=== PATIENT | female | born 1950 | race Caucasian/White ===

== ENCOUNTER 2018-04-23 10:22 | Day surgery (SDC) | payer MEDICARE, OTHER, SELFPAY ==
--- NOTE | 2018-04-23 08:33 | PM.PREOP ---
Pre-operative Note Interval Note Pre-op Check: Yes History & Physical Reviewed by Physician Changes: No
--- NOTE | 2018-04-23 08:34 | PM.OP.1 ---
Procedure & Clinicians Procedure: Date of service: April 23, 2018 Preoperative diagnoses: 1. Nuclear sclerotic and cortical cataract. 2. Asthma 3. Astigmatism which she likes to correct with a toric intraocular lens implant. 4. Morbid obesity. Postoperative diagnoses: 1. Cataract Removed with phacoemulsification and placement of a toric intraocular lens. Procedure: Phacoemulsification with Toric posterior chamber intraocular lens implant Surgeon: Judi Kuhn MD Complications:None Specimen: None Implant:[id number]+19.0 [place] Blood loss: None Anesthesia: Retrobulbar with monitored standby Anesthesiologist: Milo Mejia M.D. Description of procedure: Patient is a 67 year old female with decreased vision due to cataract which is affecting activities of daily living. She wants surgery to improve vision. She was taken to the operating room and given IV sedation. Proparacaine drops were placed in indelible ink harper were placed at the 90 and 180 degree meridian. A retrobulbar block consisting of 6 cc of 2% xylocaine without epinephrine mixed half and half with 0.5% Marcaine with 1 cc of hyaluronidase added is placed between the medial and lateral 1/3 of the inferior orbital rim. Lid akinesia is obtain with 1% xylocaine with epinephrine infiltrated along the lid margin. The eye is manually massaged for 30 sec, prepped using Betadine solution, and draped in the usual sterile fashion. Temporal approach was made, a 1 mm side-port incision was made at the 12 oclock meridian. Phenylephrine 1.5% mixed with 1% xylocaine 0.2 cc was placed into the anterior chamber. Viscoat followed by Verenice was then placed. A 2.6 mm clear incision with a 2.6 mm blade was placed at the 3 oclock meridian. A 360 degree capsulorrhexis style capsulotomy was then performed with a cystitome needle on a Healon. Hydrodelineation and hydrodissection were performed. The phacoemulsification unit is introduced, and sculpting notice used to groove the central lens. It is then removed in chopping mode. Epi nucleus is removed with epinuclear mode and irrigation aspiration was used to remove the peripheral cortex. The posterior capsule is polished. The intraocular lens is selected, inspected, power confirmed, and placed in the posterior chamber. at the 84 degree meridian. The pupil was not constricted. The wound was stromally hydrated and tested for leaks, there was none and was left sutureless. Vigamox 0.1 cc was placed into the anterior chamber. Kenalog 0.2 cc was placed in the superior subconjunctival space. A drop of antibiotic and was placed and the eye was patched and shielded. The patient was stable and returned to the recovery room in excellent condition. Dictated by: Judi Kuhn MD Copy to: [facility] Same procedure as scheduled: Yes
[2018-04-23] MEDS: PROPARACAINE 0.5% OPHTH SOL 2 DROPS EYE-OP ×2 (10:49→12:00)
[2018-04-23 10:50] VITALS: BP 165/91; PULSE 69; RESP 16; TEMP 36.4; O2SAT 99; BMI 41.1
[2018-04-23] MEDS: CATARACT EYE COMPOUND (10 DROPS/SYRINGE) 3 DROPS EYE-OP (10:50)
[2018-04-23 11:09] VITALS: BP 165/91; PULSE 69; RESP 16; TEMP 36.4; O2SAT 99
[2018-04-23 11:11] VITALS: BMI 41.1
[2018-04-23 11:17] VITALS: BMI 41.1
[2018-04-23] MEDS: HYALURONATE SODIUM 10 MG/ML SYRINGE INJ (12:37)
[2018-04-23] MEDS: BALANCED SALT IRRIG SOLN NO.2 15 ML IRRIG.SOLN IRR (12:37)
[2018-04-23] MEDS: CHONDROIDTIN/SOD HYALURONATE 1.05 ML SYRINGE INTRAOCULA (12:37)
[2018-04-23] MEDS: LIDOCAINE 1% W/EPI INJ 20 ML INJ (12:37)
[2018-04-23] MEDS: OFLOXACIN 0.3% OPHTH 5 ML 2 DROPS EYE-LEFT (12:38)
[2018-04-23] MEDS: MOXIFLOXACIN OPHTH DROPS 3 ML BOTTLE 2 DROPS INJ (12:38)
[2018-04-23] MEDS: PHENYLEPHRINE/LIDOCAINE VIAL (OR) 0.2 ML EYE-OP (12:39)
[2018-04-23] MEDS: TRIAMCINOLONE 50 MG/5 ML VIAL INJ (12:39)
[2018-04-23] MEDS: LIDOCAINE 2% 4 ML, BUPIVACAINE 0.5% (PF) 4 ML, HYALURONIDASE 150 UNIT INJ (12:40)
[2018-04-23] MEDS: BALANCED SALT IRRIG SOLN NO.2 500 ML, EPINEPHrine 1 MG IRR (12:40)
[2018-04-23] MEDS: NEOMYCIN/POLY/DEX OPHTH OINT 1 APPLIC EYE-LEFT (12:42)
[2018-04-23 13:14] VITALS: BP 157/72; PULSE 61; RESP 16; TEMP 36.4; O2SAT 100
--- NOTE | 2018-04-23 13:23 | SUR.PHASEII ---
pt dressed when ready, steady when up. friend called, waiting with volunteer, pt left in stable condition.
== END 2018-04-23 13:26 | disposition home or self-care (01) ==
LOC: OR 10:27
PROVIDERS: PCP Physician Assistant; Visit Provider Ophthalmology
DX: H25.12 Age-related nuclear cataract, left eye (principal); J45.909 Unspecified asthma, uncomplicated; H52.202 Unspecified astigmatism, left eye; E66.01 Morbid (severe) obesity due to excess calories
CPT/HCPCS: J0171; J2704; J3301; J3470; V2787

== ENCOUNTER 2018-05-07 08:25 | Day surgery (SDC) | payer MEDICARE, OTHER, SELFPAY ==
--- NOTE | 2018-05-06 17:04 | PM.PREOP ---
Pre-operative Note Interval Note Pre-op Check: Yes History & Physical Reviewed by Physician Changes: No
--- NOTE | 2018-05-06 17:18 | P.OP_ITS ---
Operative Date/Time/Diagnoses Date of procedure: 05/07/18 Time of procedure: 10:00 Procedure & Clinicians Procedure: Date of service: May 07, 2018 Preoperative diagnoses:1. Right nuclear sclerotic cataract. 2. Astigmatism which she elects to correct with a toric intraocular lens implant. Postoperative diagnoses:1. Cataract Procedure : Phacoemulsification with posterior chamber toric intraocular lens implantSurgeon: Judi Kuhn, MDComplications: None Specimen: NoneImplant: [id number] +19.5, axis 111Blood loss: None Anesthesia: Retrobulbar with monitored standbyAnesthesiologist: Yousif Seals M.D.Description of procedure: Patient is a 68 year old female with decreased vision due to cataract which is affecting activities of daily living. She wants surgery to improve vision.She was taken to the operating room. Topical proparacaine drops were placed in indelible ink harper were placed at the cardinal meridians. She was given IV sedation. A retrobulbar block insert consisting of 6 cc of 2% xylocaine without epinephrine mixed half and half with 0.5 Marcaine with 1 cc of hyaluronidase added is placed between the medial and lateral 1/3 of the inferior orbital rim. Lid akinesia is obtain with 1% xylocaine with epinephrine infiltrated along the lid margin. The eye is manually massaged for 30 sec, prepped using Betadine solution, and draped in the usual sterile fashion.Temporal approach was made, a 1 mm side-port incision was made at the 7: 30 position. Phenylephrine 1.5% mixed with 1% xylocaine 0.2 cc was placed into the anterior chamber. Viscoat followed by Verenice was then placed. A 2.6 mm clear incision with a 2.6 mm blade was placed at the 170 degree meridian. A 360 degree capsulorrhexis style capsulotomy was then performed with a cystitome needle on a Healon. Hydrodelineation and hydrodissection were performed. The phacoemulsification unit is introduced, and sculpting notice used to groove the central lens. It is then removed in chopping mode. Epi nucleus is removed with epinuclear mode and irrigation aspiration was used to remove the peripheral cortex. The posterior capsule is polished. The intraocular lens is selected, inspected, power confirmed, and placed in the posterior chamber at the 111 degree meridian.. The pupil was not constricted. The wound was stromally hydrated and tested for leaks, there was none and it was left sutureless. Vigamox 0.1 cc was placed into the anterior chamber. Kenalog 0.2 cc was placed in the superior subconjunctival space. A drop of antibiotic and was placed and the eye was patched and shielded. The patient was stable and returned to the recovery room in excellent condition.Dictated by: LUCY Schofieldopy to: [facility] Same procedure as scheduled: Yes
[2018-05-07] MEDS: PROPARACAINE 0.5% OPHTH SOL 2 DROPS EYE-OP (09:16)
[2018-05-07 09:18] VITALS: BMI 41.1
[2018-05-07] MEDS: CATARACT EYE COMPOUND (10 DROPS/SYRINGE) 3 DROPS EYE-OP (09:23)
[2018-05-07 09:24] VITALS: BP 148/81; PULSE 76; RESP 16; TEMP 36.2; O2SAT 99
[2018-05-07] MEDS: CHONDROIDTIN/SOD HYALURONATE 1.05 ML SYRINGE INTRAOCULA (10:38)
[2018-05-07] MEDS: HYALURONATE SODIUM 10 MG/ML SYRINGE INJ (10:38)
[2018-05-07] MEDS: BALANCED SALT IRRIG SOLN NO.2 15 ML IRRIG.SOLN IRR (10:38)
[2018-05-07] MEDS: OFLOXACIN 0.3% OPHTH 5 ML 2 DROPS EYE-RIGHT (10:39)
[2018-05-07] MEDS: LIDOCAINE 1% W/EPI INJ 20 ML INJ (10:39)
[2018-05-07] MEDS: MOXIFLOXACIN OPHTH DROPS 3 ML BOTTLE 2 DROPS INJ (10:39)
[2018-05-07] MEDS: TRIAMCINOLONE 50 MG/5 ML VIAL INJ (10:40)
[2018-05-07] MEDS: PHENYLEPHRINE/LIDOCAINE VIAL (OR) 0.2 ML EYE-OP (10:40)
[2018-05-07] MEDS: LIDOCAINE 2% 4 ML, BUPIVACAINE 0.5% (PF) 4 ML, HYALURONIDASE 150 UNIT INJ (10:41)
[2018-05-07] MEDS: BALANCED SALT IRRIG SOLN NO.2 500 ML, EPINEPHrine 1 MG IRR (10:41)
[2018-05-07 11:15] VITALS: BP 158/83; PULSE 70; RESP 20; TEMP 36.6; O2SAT 100
--- NOTE | 2018-05-07 11:20 | SUR.PHASEII ---
pt a & o x 3. Reviewed all discharge instructions and given in writing. Home to care of friend Yesenia
== END 2018-05-07 11:30 | disposition home or self-care (01) ==
LOC: OR 08:26
PROVIDERS: PCP Physician Assistant; Visit Provider Ophthalmology
DX: H25.11 Age-related nuclear cataract, right eye (principal); H52.201 Unspecified astigmatism, right eye
CPT/HCPCS: J0171; J2250; J2704; J3010; J3301; J3470; V2787